=== PATIENT | male | born 1950 | race Caucasian/White ===

== ENCOUNTER 2023-11-12 11:18 | Inpatient (IN) | payer OTHER, SELFPAY ==
[2023-11-10] VITALS (9 sets, daily range): BP systolic 146–175; BP diastolic 69–84; BMI 27.8; BMI 29.3
--- NOTE | 2023-11-10 16:27 | ED.GENMED ---
History of Present Illness
General
Chief Complaint: Fatigue
Source: patient
Time Seen by Provider: 11/10/23 15:56
History of Present Illness
History of Present Illness:
73-year-old male presents to the emergency room for evaluation of weakness and frequent falls. Patient states that he typically gets around with a cane because of a bad right knee. He had his first treatment for liver cancer yesterday. Since then
he has been feeling extremely weak. He states he is fallen at least 4 times. He feels like his legs just give out from under him. He has decreased appetite but is not vomiting. He receives his care through [facility]. When asked if the liver
cancer had spread anywhere he states 'it spread everywhere'. Does not know the name of his oncologist
Past History
Past History
ED Past Medical History: Arrthythmia, HTN, Hypothyroidism and Other (Full neuropathy. Diverticulosis. GERD. Hepatitis C.)
ED Past Surgical History: Orthopedic and Tonsilectomy
Phy Exam
Physical Exam
Physical Exam:
General: Awake, Alert, Oriented X3. Appears fatigued and chronically ill
Vitals: Afebrile, essentially normal vital signs
Head: Atraumatic
Eyes: Pupils equal, EOMI
Throat: Airway intact, no exudates, dry mucosa
Neck: Trachea midline
Lungs: Clear and equal b/l
Heart: Regular rate, no murmurs
Abd: Soft, Nontender, No pulsatile mass
Neuro: Generalized weakness but no focality
Skin: Warm, dry, no rash, very pale complexion
Extremities: pulses equal b/l, no edema
Course
Orders/Labs/Results
Orders:
Orders
11/10/23 Dinner
Regular
At Your Request: Full Participation
11/10/23 16:21
0.9% Sodium Chloride 1000 ml [Nss] 1,000 ml IV BOLUS
11/10/23 16:24
CT Head W/o Iv Contrast Urgent
Comment:
Reason For Exam: frequent falls
11/10/23 16:29
Cardiac Monitoring- Treatment ONCE
11/10/23 16:36
Complete Blood Count/With Diff Urgent
Comprehensive Metabolic Panel Urgent
Magnesium Urgent
Prothrombin Time Urgent
11/10/23 17:23
HYDROmorphone [Dilaudid] 0.5 mg .ROUTE .STK-MED ONE
11/10/23 17:26
HYDROmorphone [Dilaudid] 0.5 mg IV NOW STA
11/10/23 19:12
Potassium Chloride [KCl] 40 meq PO NOW STA
11/10/23 19:43
Admit/Transfer Patient As Directed
Co-Sign Provider:
Level of Care: Observation services
Assign to:: Medical/Surgical
Physician / Group: edilberto
Diagnosis: weakness, spinal mets
11/10/23 19:44
Code Status As Directed
Resuscitation Status: Full Code
11/10/23 21:25
Acetaminophen [Tylenol] 650 mg PO Q4HPRN PRN
Tramadol HCl [Ultram] 50 mg PO TIDPRN PRN
11/10/23 21:25
VTE Contraindication Routine
VTE Mechanical Device Contraindication: Medical Contraindication
Pharmocologic Contraindication: Medical Contraindication
MR Lumbar W/o & With Contrast Routine
Comment:
Reason For Exam: spinal mets, weakness
Recent pill cam endoscopy?: No
MR Thoracic Spine W/o & With Routine
Comment:
Reason For Exam: spinal metsm weakness
Recent pill cam endoscopy?: No
Activity As Directed
Activity Level: As Tolerated
Vital Signs As Directed
Frequency: Per unit guidelines
Ot Eval And Treat Routine
Pt Eval And Treat Routine
Activity Level: As Tolerated
11/10/23 22:00
Atorvastatin [Lipitor] 40 mg PO HS
11/11/23 06:00
Complete Blood Count/With Diff IN AM
Comprehensive Metabolic Panel IN AM
Levothyroxine [Synthroid] 150 mcg PO DAILY @ 0600
11/11/23 08:00
Lisinopril [Zestril] 40 mg PO DAILY
Midodrine [ProAmatine] 5 mg PO TID @ 0800,1200,1700
Pantoprazole [Protonix] 40 mg PO DAILY
11/11/23 18:00
Rivaroxaban [Xarelto] 20 mg PO QPM
Abnormal Lab Results
11/10/23
16:36
RBC 3.63 L 10^6/uL
(4.70-6.10)
Hgb 10.8 L g/dL
(13.0-18.0)
Hct 32.4 L %
(39.0-52.0)
RDW 16.0 H %
(11.5-14.5)
MPV 12.0 H fL
(7.4-10.4)
Absolute Neuts (auto) 6.9 H 10^3/uL
(1.4-6.5)
Absolute Lymphs (auto) 0.7 L 10^3/uL
(1.2-3.4)
Neutrophils % 83.6 H %
(42.2-75.2)
Lymphocytes % 8.9 L %
(20.5-51.1)
PT 16.2 H Sec
(11.4-14.6)
Potassium 3.1 L mmol/L
(3.5-5.1)
BUN 27 H mg/dl
(9-20)
Calcium 11.2 H mg/dl
(8.4-10.2)
AST 162 H U/L
(17-59)
Alkaline Phosphatase 218 H U/L
(38-126)
Total Protein 5.7 L g/dl
(6.3-8.2)
11/10/23 16:36
11/10/23 16:36
Vital Signs
Initial and Last Documented VS:
Initial Vital Signs
BP
160/84
11/10/23 15:28
Last Documented Vital Signs
Temp Pulse Resp BP Pulse Ox
98.5 F 81 16 169/75 99
11/10/23 21:30 11/10/23 21:30 11/10/23 21:30 11/10/23 21:30 11/10/23 21:30
MDM/Problems Addressed
Differential Diagnosis Includes:
renal failure, hyponatremia, dehydration, adverse effect of chemo, progression of dz with cord compression.
MDM/Problems Addressed:
Patient presents with multiple falls with generalized weakness. He does not appear to have focal leg weakness but rather generalized weakness. His labs show a hemoglobin of 10.8. Chemistries show mild hypokalemia and mild prerenal azotemia. Head
CT does not show any acute abnormalities. Patient did not feel much better after IV hydration. I obtain records of his imaging studies from [facility]. He does have significant metastatic disease to the pelvis as well as the thoracic spine.
Patient does not seem to have a neurogenic bladder and again the weakness does not seem focal so I doubt cord compression but something to be watched as an inpatient. Patient unable to care for himself at home and unable to ambulate without
significant assistance. Will hospitalize the patient for further IV hydration and further evaluation.
*Radiology
Radiology exam reviewed: radiology read reviewed
*Pulse Oximetry
Patient hypoxic: no
*Critical Care Note
Total Time (30-74mins, 75-104mins- exclusive of procedures): Not Applicable
Patient Management
Social determinants of health affecting care: Living situation, Poor outpatient follow-up and Poor social support
ED Attending Note
-
Portions of this chart may have been created with voice recognition software.� Occasional wrong word or��sound alike� substitutions may have occurred due to the inherent limitations of voice recognition software.
Discharge Plan
Departure
Patient Disposition: Admit
Date of Disposition: 11/10/23
Time of Disposition: 19:19
Admit to: Med/Surg
Presentation/result/management discussed w/ accepting MD/DO: Hospitalist
Condition: Fair
Discharge Problem:
Hepatocellular carcinoma, Acute hypokalemia, Acute dehydration
Interventions
Interventions:
*Risk Screen - Suicide Last Done: 11/10/23 21:43
*General Assessment Last Done: 11/10/23 15:40
*Neglect/Abuse Screening Last Done: 11/10/23 15:40
*ED COVID-19 Vaccine History Last Done: 11/10/23 15:40
*Nursing Disposition Last Done: 11/10/23 20:50
Discharge Date and Time
Discharge Date/Time: 11/10/23 20:50
[2023-11-10] MEDS: NSS 1000 IV (16:40)
[2023-11-10 16:55] LABS: % Basophils 0.1 % (0-2); % Eosinophils 0.2 % (0-6); % Immature Granulocytes 0.5 % (0-0.5); % Lymphocytes 8.9 % (20.5-51.1); % Monocytes 6.7 % (1.7-9.3); % Neutrophils 83.6 % (42.2-75.2); Absolute Lymphocytes 0.7 10^3/uL (1.2-3.4); Absolute Monocytes 0.6 10^3/uL (0.1-0.6); Absolute Neutrophils 6.9 10^3/uL (1.4-6.5); Hematocrit 32.4 % (39.0-52.0); Hemoglobin 10.8 g/dL (13.0-18.0); Mean Corp Hgb Conc. 33.3 g/dL (33.0-37.0); Mean Corpuscular Hgb 29.8 pg (27.0-31.0); Mean Corpuscular Volume 89.3 fL (80.0-94.0); Nucleated Red Blood Cells % 0 % (-); Platelet Count 229 10^3/uL (130-400); Red Blood Cell Count 3.63 10^6/uL (4.70-6.10); White Blood Cell Count 8.3 10^3/uL (4.8-10.8)
[2023-11-10 16:56] LABS: INR 1.29; PT 16.2 Sec (11.4-14.6)
[2023-11-10 17:05] LABS: ALT (SGPT) 31 U/L (0-50); AST (SGOT) 162 U/L (17-59); Albumin 3.5 g/dl (3.5-5.0); Alkaline Phosphatase 218 U/L (38-126); Blood Urea Nitrogen 27 mg/dl (9-20); Calcium 11.2 mg/dl (8.4-10.2); Carbon Dioxide 27 mmol/L (22-30); Chloride 105 mmol/L (98-107); Estimated Creatinine Clearance 100 ml/min; Glucose 90 mg/dl (70-99); Magnesium 1.8 mg/dl (1.6-2.3); Potassium 3.1 mmol/L (3.5-5.1); Sodium 140 mmol/L (135-145); Total Bilirubin 1.1 mg/dl (0.2-1.3); Total Protein 5.7 g/dl (6.3-8.2); eGFR > 60.00
[2023-11-10] MEDS: DILAUDID 0.5 MG IV (17:26)
--- NOTE | 2023-11-10 17:45 | PHANOTE ---
Med Rec Note:
Attempted to interview pt for his home meds. Pt is a poor historian and seemed confused on medications. Home med list compiled from Dr Hedrick and ECW note on 11/03/23 ([facility]). Some medications left unconfirmed with one source.
--- NOTE | 2023-11-10 19:48 | HPS.HSE ---
Family Physician
-
Family Physician: NOT KNOW UNKNOWN - PT DOES
Chief Complaint
-
weakness
History of Present Illness
73-year-old male past medical history of hepatocellular carcinoma, hepatitis C treated with Harvoni, cirrhosis, osteoarthritis, hypertension, hyperlipidemia, paroxysmal atrial fibrillation on Eliquis, chronic right bundle branch block, questionable
sleep apnea, GERD, diverticulosis, hypothyroidism, peripheral neuropathy, gout, depression, psoriasis, scoliosis, degenerative disc disease, obesity, presenting with weakness frequent falls. He typically ambulates with a cane because of right knee
pain.
He completed his first course of chemotherapy for hepatocellular carcinoma yesterday. Since then he has been feeling extremely weak and tired. He fell at least 4 times. He feels like his legs just give out from under him. He has decreased
appetite but no vomiting. He feels that the weakness has been ongoing for at least 4 days. He has been having right-sided mid back pain for the past several days radiating down the right leg. He denies any incontinence or numbness or tingling.
He denies any fevers or chills, cough, urinary symptoms, nausea vomiting or diarrhea.
He follows [facility] at [place]. He states that he is scheduled for radiation for the bone metastases next week.
He denies smoking or alcohol use.
Medical History
Past Medical History
Past Medical History: Reports Other (hepatocellular carcinoma, hepatitis C treated with Harvoni, cirrhosis, osteoarthritis, hypertension, hyperlipidemia, paroxysmal atrial fibrillation on Eliquis, chronic right bundle branch block, questionable
sleep apnea, GERD, diverticulosis, hypothyroidism, peripheral neuropathy, gout, depression, )
Past Surgical History: Reports Other (Orthopedic and Tonsilectomy)
Social History
Tobacco: Non-smoker
Alcohol: None
Drug: None
Family History
Family History: Not pertinent
Allergies / Home Medications
Allergies reflects when Allergies were last updated in [employer].
Home Medications with original date entered in [employer]
Allergy/Medication List:
Allergies
Allergy/AdvReac Type Severity Reaction Status Date / Time
No Known Allergies Allergy Verified 10/29/21 14:35
Home Medications
citalopram 10 mg tablet 10 mg PO DAILY Depression 03/27/20
fluticasone propionate 50 mcg/actuation nasal spray,suspension 1 spray intranasal BID Thyroid 03/27/20
allopurinol 300 mg tablet 600 mg PO DAILY 11/10/23
atorvastatin 40 mg tablet 40 mg PO HS 11/10/23
azelastine 137 mcg (0.1 %) nasal spray 1 spray intranasal BID 11/10/23
clopidogrel 75 mg tablet 75 mg PO DAILY 11/10/23
digoxin 125 mcg (0.125 mg) tablet 125 mcg PO DAILY 11/10/23
furosemide 20 mg tablet 40 mg PO DAILY 11/10/23
levothyroxine 150 mcg tablet 150 mcg PO DAILY 11/10/23
lisinopril 20 mg tablet 40 mg PO DAILY 11/10/23
metoprolol succinate 25 mg tablet,extended release 24 hr 25 mg PO DAILY 11/10/23
midodrine 5 mg tablet 5 mg PO TID 11/10/23
pantoprazole 40 mg tablet,delayed release 40 mg PO DAILY 11/10/23
rivaroxaban 20 mg tablet (Xarelto) 20 mg PO QPM 11/10/23
tramadol 50 mg tablet 50 mg PO TIDPRN PRN moderate pain 11/10/23
Review of Systems
-
History Source: Patient
A 12 point ROS was completed and negative except as noted: Yes
Constitutional: Reports No Symptoms
EENT: Reports No Symptoms
Respiratory: Reports No Symptoms
Cardiac: Reports No Symptoms
Abdomen/GI: Reports No Symptoms
: Reports No Symptoms
Musculoskeletal: Reports No Symptoms
Skin: Reports No Symptoms
Neurological: Reports No Symptoms
Endocrine: Reports No Symptoms
Hematologic/Lymphatic: Reports No Symptoms
Psych: Reports No Symptoms
Physical Exam
Vital Signs
Vital Signs
Temp Pulse Resp BP Pulse Ox
98.3 F 79 20 160/84 98
11/10/23 15:36 11/10/23 15:36 11/10/23 15:36 11/10/23 15:36 11/10/23 16:16
Physical Exam
General: Well Developed, Well Nourished and No Apparent Distress
HEENT: NormoCephalic, Moist mucous membranes and Atraumatic
Respiratory: Clear
Cardiac: S1/S2 and Regular Rhythm; No Murmur or Rub
GI: Soft, Non Tender, Non Distended and Normal Bowel Sounds; No Organomegaly
Rectal: Deferred by Provider
Musculoskeletal: No Clubbing, No Cyanosis and No Edema
Skin: No Rash
Neuro: Nonfocal/grossly intact
Laboratory Results
-
11/10/23 16:36
11/10/23 16:36
Laboratory Results
PT 16.2 Sec (11.4-14.6) H 11/10/23 16:36
INR 1.29 11/10/23 16:36
Total Bilirubin 1.1 mg/dl (0.2-1.3) 11/10/23 16:36
AST 162 U/L (17-59) H 11/10/23 16:36
ALT 31 U/L (0-50) 11/10/23 16:36
Alkaline Phosphatase 218 U/L (38-126) H 11/10/23 16:36
Data Reviewed
-
Lab Data: Labs Reviewed by me
Old Records: Reviewed
Impression/Plan
-
IMPRESSION:
PLAN:
# Generalized weakness after chemotherapy for hepatocellular carcinoma yesterday
-IV fluids given
-Patient still unable to ambulate after IV fluids
-PT/OT for placement
-Hold Lasix
# Bilateral lower extremity weakness possibly secondary to spinal metastases
-No focality of weakness on examination or red flag symptoms
-CT scan report in the chart from 10/10 showed metastatic disease with multiple lytic lesions in the posterior right iliac bone extending into spinal musculature and right sacral ala, multiple thoracic vertebral bodies, right third rib, left sacral
ala, T2 vertebral body likely extending into spinal canal
-MRI of spine from August does not show any evidence of bony metastases
-Check MRI thoracic and lumbar spine
-Patient apparently already scheduled for radiation with [facility] oncology
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
-Continue tramadol
Cirrhosis
Hepatitis C status treated with Harvoni
Osteoarthritis
Essential hypertension
-Continue lisinopril
-Unclear whether metoprolol
Orthostatic hypotension
-Continue midodrine
Hyperlipidemia
-Continue statin
Paroxysmal atrial fibrillation
-Continue Xarelto
-Unclear whether digoxin
Chronic right bundle branch block
Questionable sleep apnea
GERD
-Continue Protonix
Diverticulosis
Hypothyroidism
-Continue levothyroxine
Peripheral neuropathy
Gout
-Unclear whether on allopurinol
Anxiety/depression
-Unclear whether on citalopram
Psoriasis
Scoliosis
Degenerative disc disease
Obesity
Full code
DVT prophylaxis�Eliquis
Regular diet
[2023-11-10] MEDS: KCL 40 MEQ PO (20:22)
[2023-11-10] MEDS: LIPITOR 40 MG PO (21:59)
[2023-11-10] MEDS: ULTRAM 50 MG PO (21:59)
[2023-11-11] MEDS: SYNTHROID 150 MCG PO (05:25)
[2023-11-11 05:30] VITALS: BMI 29.9
[2023-11-11 06:20] LABS: % Basophils 0.2 % (0-2); % Immature Granulocytes 0.7 % (0-0.5); % Lymphocytes 9.2 % (20.5-51.1); % Monocytes 8.4 % (1.7-9.3); % Neutrophils 80.5 % (42.2-75.2); Absolute Eosinophils 0.1 10^3/uL (0-0.7); Absolute Lymphocytes 0.6 10^3/uL (1.2-3.4); Absolute Monocytes 0.5 10^3/uL (0.1-0.6); Absolute Neutrophils 4.9 10^3/uL (1.4-6.5); Hematocrit 30.2 % (39.0-52.0); Mean Corp Hgb Conc. 33.1 g/dL (33.0-37.0); Mean Corpuscular Hgb 30.4 pg (27.0-31.0); Mean Corpuscular Volume 91.8 fL (80.0-94.0); Mean Platelet Volume 11.7 fL (7.4-10.4); Nucleated Red Blood Cells % 0 % (-); Platelet Count 178 10^3/uL (130-400); Red Blood Cell Count 3.29 10^6/uL (4.70-6.10); White Blood Cell Count 6.1 10^3/uL (4.8-10.8)
[2023-11-11 06:29] LABS: ALT (SGPT) 26 U/L (0-50); AST (SGOT) 128 U/L (17-59); Albumin 2.9 g/dl (3.5-5.0); Alkaline Phosphatase 172 U/L (38-126); Blood Urea Nitrogen 24 mg/dl (9-20); Calcium 10.8 mg/dl (8.4-10.2); Carbon Dioxide 28 mmol/L (22-30); Chloride 108 mmol/L (98-107); Estimated Creatinine Clearance 123 ml/min; Glucose 94 mg/dl (70-99); Potassium 3.4 mmol/L (3.5-5.1); Sodium 139 mmol/L (135-145); eGFR > 60.00
[2023-11-11 06:39] LABS: Total Protein 5.1 g/dl (6.3-8.2)
[2023-11-11] MEDS: PROTONIX 40 MG PO (07:48)
[2023-11-11] MEDS: ZESTRIL 40 MG PO (07:49)
[2023-11-11 07:53] VITALS: BP 162/73
[2023-11-11] MEDS: ProAmatine PO ×3 (07:56→17:20)
--- NOTE | 2023-11-11 10:02 | W.PN.HOSP.TC ---
Today's Communication/Plan
-
see AP
Assessment / Plan
Assessment / Plan
HPI: 73-year-old male past medical history of hepatocellular carcinoma, hepatitis C treated with Harvoni, cirrhosis, osteoarthritis, hypertension, hyperlipidemia, paroxysmal atrial fibrillation on Eliquis, chronic right bundle branch block,
questionable sleep apnea, GERD, diverticulosis, hypothyroidism, peripheral neuropathy, gout, depression, psoriasis, scoliosis, degenerative disc disease, obesity; presented with weakness and frequent falls. He typically ambulates with a cane
because of right knee pain.
He completed his first course of chemotherapy for hepatocellular carcinoma the day [employer]. Since then, he has been feeling extremely weak and tired. He fell at least 4 times. He feels like his legs just give out from under him. He has decreased
appetite but no vomiting. He feels that the weakness has been ongoing for at least 4 days. He has been having right-sided mid back pain for the past several days radiating down the right leg. He denies any incontinence or numbness or tingling.
He denies any fevers or chills, cough, urinary symptoms, nausea vomiting or diarrhea.
He follows [facility] at [place]. He states that he is scheduled for radiation for the bone metastases the following week.
A/P:
# Bilateral lower extremity weakness, suspect due to progression of metastatic hepatocellular carcinoma, chemo S/E, and considering spinal metastases as ddx
s/p IV fluid
CT head NAD
Apparently CT from 10/10 showed metastatic disease with multiple lytic lesions in the posterior right iliac bone extending into spinal musculature and right sacral ala, multiple thoracic vertebral bodies, right third rib, left sacral ala, T2
vertebral body likely extending into spinal canal
Apparently MRI of spine from August did not show any evidence of bony metastases
Check MRI thoracic and lumbar spine
Patient apparently already scheduled for radiation with [facility] oncology
Onc CS
PT/OT for placement
Hold Lasix
# Hepatocellular carcinoma with metastases to bone/spine
# Cirrhosis
# Hepatitis C status treated with Harvoni
Continue tramadol for pain control
# Osteoarthritis
# Essential hypertension
Continue lisinopril
Unclear whether metoprolol
# Orthostatic hypotension
Continue midodrine with holding parameter
# Hyperlipidemia
Continue statin
# Paroxysmal atrial fibrillation
Continue Xarelto
Unclear whether digoxin
# Chronic right bundle branch block
# Questionable sleep apnea
# GERD
Continue Protonix
# Diverticulosis
# Hypothyroidism
Continue levothyroxine
# Peripheral neuropathy
# Gout
Unclear whether on allopurinol
# Anxiety/depression
Unclear whether on citalopram
# Psoriasis
# Scoliosis
# Degenerative disc disease
# Obesity
Full code
DVT prophylaxis�Eliquis
Regular diet
DW on the phone. She has expressed that she is afraid that pt would fall again at home
Anticipated Discharge: > 48 hours
Subjective/Interval History
-
Date of Service: November 11, 2023
Objective Data
-
Labs:
Laboratory Results
11/11/23
05:45
WBC 6.1
Hgb 10.0 L
Hct 30.2 L
Plt Count 178 D
Sodium 139
Potassium 3.4 L
Chloride 108 H
Carbon Dioxide 28
BUN 24 H
Creatinine 0.6 L
Glucose 94
Calcium 10.8 H
Total Bilirubin 1.0
AST 128 H
ALT 26
Alkaline Phosphatase 172 H
Vital Signs:
Vital Signs
Temp Pulse Resp BP Pulse Ox
36.7 C 73 16 162/73 96
11/11/23 07:53 11/11/23 07:53 11/11/23 07:53 11/11/23 07:53 11/11/23 07:53
I&O
0711/11/23 11/12/23
06:59 06:59 06:59
Intake Total 480 / 480
Output Total 125 / 125
Balance 355 / 355
Review of Systems
-
Constitutional: Reports Weakness
Physical Exam
-
General: Well Developed, Well Nourished, No Apparent Distress, Comfortable and Conversant; Negative Respiratory Distress
HEENT: Normocephalic, Atraumatic, Nose Appears Normal and Ears Appear Normal; Negative Oxygen
Respiratory: Clear to Auscultation and Non Labored Respirations; Negative Accessory Resp Muscle Use
Cardiac: Regular Rhythm and S1/S2
GI: Soft, Nontender, Nondistended and Normal Bowel Sounds
Skin: Warm and Dry
Neuro: Awake, Alert and Oriented
Psych: Calm and Intact Judgement/Insight
Data Reviewed
-
CT Scan: Report Reviewed by me (CT head)
Labs: Labs Reviewed by me
[2023-11-11 10:15] VITALS: BP 146/77; PULSE 75
--- NOTE | 2023-11-11 12:04 | CON.ONC ---
Impression
Impression
Posttreatment fatigue
Advanced HCC
Dehydration
Hypertension
Hyperlipidemia
PAF
Plan
Plan
Patient is a very difficult historian he is able to offer no information that is insightful to his care
Discussed with Dr. Urrutia the plan for pelvic radiation therapy
Patient had no cord compression in the previous workup
He received combination Tremelimumab/durvalumab with exacerbation of confusion and weakness
MRI planned
Will need physical therapy
Check cortisol and TSH level
Spoke with his Maren was a unable to offer any insight into his treatment
Will update the note as additional information is available
Continue to monitor CBC
Anticipate he will need placement for physical therapy
Patient History
History of Present Illness
73-year-old male past medical history of hepatocellular carcinoma, hepatitis C treated with Harvoni, cirrhosis, osteoarthritis, hypertension, hyperlipidemia, paroxysmal atrial fibrillation on Eliquis, chronic right bundle branch block, questionable
sleep apnea, GERD, diverticulosis, hypothyroidism, peripheral neuropathy, gout, depression, psoriasis, scoliosis, degenerative disc disease, obesity, presenting with weakness frequent falls. He typically ambulates with a cane because of right knee
pain. He completed his first tx, suspect combination itremelimumab/durvalumab for hepatocellular carcinoma with Dr. Mendoza/Renan at [facility]. He is suffering severe gait dysfunction and performance status decline. He has decreased appetite but
no vomiting. He feels that the weakness has been ongoing for at least 4 days. He has been having right-sided mid back pain for the past several days radiating down the right leg. He denies any incontinence or numbness or tingling. He denies any
fevers or chills, cough, urinary symptoms, nausea vomiting or diarrhea. He states that he is scheduled for radiation for the bone metastases.
Past-Medical/Surgical History
Past Medical History
hepatocellular carcinoma, hepatitis C treated with Harvoni, cirrhosis, osteoarthritis, hypertension, hyperlipidemia, paroxysmal atrial fibrillation on Eliquis, chronic right bundle branch block, questionable sleep apnea, GERD, diverticulosis,
hypothyroidism, peripheral neuropathy, gout, depression
Past Surgical Histor Orthopedic and Tonsilectomy
Social History
Tobacco: Non-smoker
Alcohol: None
Drug: None
Family History
Family History: Not pertinent
Patient Medication
�Medication �Instructions �Recorded �Confirmed �Last Taken �Type
citalopram 10 mg tablet 10 mg PO DAILY Depression 03/27/20 11/11/23 06/06/20 09:00 History
allopurinol 300 mg tablet 600 mg PO DAILY 11/10/23 11/11/23 Unknown History
atorvastatin 40 mg tablet 40 mg PO HS High Cholesterol 11/10/23 11/10/23 Unknown History
azelastine 137 mcg (0.1 %) nasal 1 spray intranasal BID Allergies 11/10/23 11/10/23 Unknown History
spray
clopidogrel 75 mg tablet 75 mg PO DAILY Blood Clot 11/10/23 11/10/23 Unknown History
Prevention/Tx
furosemide 20 mg tablet 40 mg PO DAILY Fluid 11/10/23 11/10/23 Unknown History
Retention/Swelling
levothyroxine 150 mcg tablet 150 mcg PO DAILY Thyroid 11/10/23 11/10/23 Unknown History
lisinopril 20 mg tablet 20 mg PO DAILY Blood Pressure 11/10/23 11/11/23 Unknown History
midodrine 5 mg tablet 5 mg PO TID Blood Pressure 11/10/23 11/10/23 Unknown History
pantoprazole 40 mg tablet,delayed 40 mg PO DAILY Gastrointestinal 11/10/23 11/10/23 Unknown History
release Issue
rivaroxaban 20 mg tablet (Xarelto) 20 mg PO QPM Blood Clot 11/10/23 11/10/23 Unknown History
Prevention/Tx
tramadol 50 mg tablet 50 mg PO TIDPRN PRN moderate pain 11/10/23 11/10/23 Unknown History
Active Medications
Generic Name Dose Route Start Last Admin
Trade Name Freq PRN Reason Stop Dose Admin
Acetaminophen 650 mg 11/10/23 21:25
Acetaminophen 325 Mg Tablet PO 12/08/23 21:24
Q4HPRN PRN
mild pain/SWAN/temp> 100.4F
Allopurinol 600 mg 11/12/23 08:00
Allopurinol 300 Mg Tablet PO 12/10/23 07:59
DAILY SUSIE
Atorvastatin Calcium 40 mg 11/10/23 22:00 11/10/23 21:59
Atorvastatin (Lipitor) 40 Mg Tablet PO 12/08/23 21:59 40 mg
HS SUSIE Administration
Citalopram Hydrobromide 10 mg 11/12/23 08:00
Citalopram 10 Mg Tablet PO 12/10/23 07:59
DAILY SUSIE
Clopidogrel Bisulfate 75 mg 11/12/23 08:00
Clopidogrel 75 Mg Tablet PO 12/10/23 07:59
DAILY SUSIE
Furosemide 40 mg 11/12/23 08:00
Furosemide 40 Mg Tablet PO 12/10/23 07:59
DAILY SUSIE
Levothyroxine Sodium 150 mcg 11/11/23 06:00 11/11/23 05:25
Levothyroxine 150 Mcg Tablet PO 12/09/23 05:59 150 mcg
DAILY @ 0600 SUSIE Administration
Lisinopril 20 mg 11/12/23 08:00
Lisinopril 20 Mg Tablet PO 12/10/23 07:59
DAILY SUSIE
Midodrine 5 mg 11/11/23 08:00 11/11/23 07:56
Midodrine 5 Mg Tablet PO 12/09/23 07:59 Not Given
TID @ 0800,1200,1700 SUSIE
Pantoprazole Sodium 40 mg 11/11/23 08:00 11/11/23 07:48
Pantoprazole 40 Mg Delayed Release Tablet PO 12/09/23 07:59 40 mg
DAILY SUSIE Administration
Rivaroxaban 20 mg 11/11/23 18:00
Rivaroxaban 20 Mg Tablet PO 12/09/23 17:59
QPM SUSIE
Sodium Chloride 0 flush 11/10/23 22:00
Sodium Chloride 0.9% (Flush) Syringe IV 12/08/23 21:59
PER PROTOCOL SUSIE
Tramadol HCl 50 mg 11/10/23 21:25 11/10/23 21:59
Tramadol Hcl 50 Mg Tablet PO 12/08/23 21:24 50 mg
TIDPRN PRN Administration
moderate pain
Review of Systems
-
Negative for 12 point review of systems other than those reviewed HPI
Physical Exam
-
Physical Exam
General: Well Developed, Well Nourished and No Apparent Distress
HEENT: Moist mucous membranes and Atraumatic
Respiratory: Clear
Cardiac: S1/S2 and Regular Rhythm
GI: Soft, mild abdominal tenderness with palpable liver edge
Musculoskeletal: No Clubbing, No Cyanosis and No Edema
Skin: No Rash
Neuro: Nonfocal/grossly intact
Labs
Lab Results
WBC 6.1 10^3/uL (4.8-10.8) 11/11/23 05:45
RBC 3.29 10^6/uL (4.70-6.10) L 11/11/23 05:45
Hgb 10.0 g/dL (13.0-18.0) L 11/11/23 05:45
Hct 30.2 % (39.0-52.0) L 11/11/23 05:45
MCV 91.8 fL (80.0-94.0) 11/11/23 05:45
MCH 30.4 pg (27.0-31.0) 11/11/23 05:45
MCHC 33.1 g/dL (33.0-37.0) 11/11/23 05:45
RDW 16.0 % (11.5-14.5) H 11/11/23 05:45
Plt Count 178 10^3/uL (130-400) D 11/11/23 05:45
MPV 11.7 fL (7.4-10.4) H 11/11/23 05:45
Abs Immat Gran (auto) 0.0 10^3/uL (0-0.05) 11/11/23 05:45
Absolute Neuts (auto) 4.9 10^3/uL (1.4-6.5) 11/11/23 05:45
Absolute Lymphs (auto) 0.6 10^3/uL (1.2-3.4) L 11/11/23 05:45
Absolute Monos (auto) 0.5 10^3/uL (0.1-0.6) 11/11/23 05:45
Absolute Eos (auto) 0.1 10^3/uL (0-0.7) 11/11/23 05:45
Absolute Basos (auto) 0.0 10^3/uL (0-0.2) 11/11/23 05:45
Immature Gran % 0.7 % (0-0.5) H 11/11/23 05:45
Neutrophils % 80.5 % (42.2-75.2) H 11/11/23 05:45
Lymphocytes % 9.2 % (20.5-51.1) L 11/11/23 05:45
Monocytes % 8.4 % (1.7-9.3) 11/11/23 05:45
Eosinophils % 1.0 % (0-6) 11/11/23 05:45
Basophils % 0.2 % (0-2) 11/11/23 05:45
Creatinine 0.6 mg/dL (0.7-1.3) L 11/11/23 05:45
Vital Signs
Vital Signs
Temp Pulse Resp BP Pulse Ox
98.1 F 73 16 162/73 96
11/11/23 07:53 11/11/23 07:53 11/11/23 07:53 11/11/23 07:53 11/11/23 07:53
[2023-11-11] MEDS: KCL 40 MEQ PO (12:07)
[2023-11-11] MEDS: ULTRAM 50 MG PO (12:15)
--- NOTE | 2023-11-11 14:51 | CM ---
Met with pt at bedside - Received chemo yesterday -reports 'very tired' and 'slow today'
Reports lives in a 2 story home with his and son - 5 steps to enter; 17 steps to bedroom
Reports he takes care of his - she is blind
Reports was able to manage steps until recently. Independent with adl's. Ambulates with rolling walker
DME - Cane, rolling walker
SNF - no hx
HH - no Hx
Discussed YEE
PCP - Dr Mayito Correa at [facility]
Pharm - [facility]
PT/OT recommending SNF
Given option list - pt requested CM call his . Spoke with pts - updated. Reports husbands memory has been affected by chemo. Discussed options. [facility] and [facility]
Referrals sent in [facility]
Will need auth
Plan - anticipate SNF at d/c
[2023-11-11 15:37] VITALS: BP 135/76
[2023-11-11] MEDS: XARELTO 20 MG PO (17:21)
[2023-11-11 17:51] LABS: Cortisol, Random 13.7 ug/dl; TSH 1.79 uIU/ml (0.47-4.68)
[2023-11-11] MEDS: LIPITOR 40 MG PO (21:44)
[2023-11-11 23:18] VITALS: BP 156/76
[2023-11-12] MEDS: SYNTHROID 150 MCG PO (05:15)
[2023-11-12 05:21] VITALS: BMI 29.3
[2023-11-12 06:27] LABS: Hematocrit 31.6 % (39.0-52.0); Hemoglobin 10.5 g/dL (13.0-18.0); Mean Corp Hgb Conc. 33.2 g/dL (33.0-37.0); Mean Corpuscular Hgb 30.2 pg (27.0-31.0); Mean Corpuscular Volume 90.8 fL (80.0-94.0); Mean Platelet Volume 10.8 fL (7.4-10.4); Platelet Count 171 10^3/uL (130-400); Red Blood Cell Count 3.48 10^6/uL (4.70-6.10)
[2023-11-12 06:42] LABS: ALT (SGPT) 27 U/L (0-50); AST (SGOT) 172 U/L (17-59); Alkaline Phosphatase 179 U/L (38-126); Blood Urea Nitrogen 21 mg/dl (9-20); Carbon Dioxide 29 mmol/L (22-30); Chloride 106 mmol/L (98-107); Direct Bilirubin 0.3 mg/dl (0.0-0.4); Estimated Creatinine Clearance 110 ml/min; Glucose 85 mg/dl (70-99); Magnesium 1.8 mg/dl (1.6-2.3); Potassium 4.1 mmol/L (3.5-5.1); Sodium 136 mmol/L (135-145); Total Bilirubin 1.2 mg/dl (0.2-1.3); Total Protein 5.2 g/dl (6.3-8.2); eGFR > 60.00
[2023-11-12 07:33] VITALS: BP 149/78
[2023-11-12 08:24] VITALS: BMI 29.3
[2023-11-12] MEDS: PROTONIX 40 MG PO (08:26)
[2023-11-12] MEDS: ZESTRIL 20 MG PO (08:26)
[2023-11-12] MEDS: PLAVIX 75 MG PO (08:27)
[2023-11-12] MEDS: CELEXA 10 MG PO (08:27)
[2023-11-12] MEDS: ProAmatine PO ×3 (08:27→17:11)
[2023-11-12] MEDS: ZYLOPRIM 600 MG PO (08:27)
[2023-11-12] MEDS: LASIX 40 MG PO (08:27)
--- NOTE | 2023-11-12 09:14 | W.PN.ONC2 ---
Addendum entered and electronically signed by Nataly Mitchell MD 11/12/23 12:48:
Reviewed MRI findings w/ radiology and Rad Onc, c/w T3 cord compression
Rad onc consult to plan treatment (known to Dr. Bailee Urrutia at [facility])
Will start steroids, Dex 10mg now, and 4mg q8hr
PPI for GI ppx, especially while on DOAC + Plavix
Original Note:
Today's Communication / Plan
-
f/u L -spine, T-spine
pamidronate ordered
check iron studies, b12, folate, retic
check PTH
Impression
Impression
I was able to obtain and review records from [place] [facility]
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 Urrutia to right liliac crest
Dehydration
Hypertension
Hyperlipidemia
PAF
mild normocytic anemia, stable
hypercalcemia secondary to bone mets
Plan
Plan
Bone mets-f/u MRI
pamidronate
PT/OT
normal cortisol and TSH level -monitor for immune mediated toxicities
mild normocytic anemia evaluation
hypercalcemia secondary to malignancy
Subjective/Objective
Chief Complaint
No new complaints
denies headache, dizziness
Reports weakness and back and right hip pain
denies any dental issues or mouth pain
Subjective
Exams: MR Brain W/o & With Contrast
CPT: 17269
PROCEDURE: MR Brain W/o  With Contrast
CLINICAL INDICATION: confusion- possible brain mets
TECHNIQUE: 1.5 Alexus. Unenhanced and enhanced MRI imaging of the brain was performed. Precontrast sagittal and axial T1, as well as axial fast spin echo T2, FLAIR, and diffusion images were obtained. Postcontrast T1 axial and coronal images were
also obtained.
COMPARISON: CT head 11/10/2023
FINDINGS: Evaluation is limited by patient involuntary motion artifact.
Axial FLAIR sequence demonstrates mild hyperintensity within the periventricular and deep subcortical white matter, likely related to chronic small vessel ischemic changes. No suspicious abnormal parenchymal signal intensity is identified.
The ventricles and sulci are normal in size and configuration. There is no mass effect, midline shift, or extra axial collection.
There is no abnormal parenchymal or meningeal enhancement. There is no abnormal signal intensity on diffusion-weighted images.
The vascular structures at the skull base are unremarkable, as far as visualized. The sinuses and mastoids are clear.
IMPRESSION:
No acute intracranial abnormality noted. No evidence for intracranial metastases.
Vital Signs:
Vital Signs
Temp Pulse Resp BP Pulse Ox
97.7 F 76 16 149/78 95
11/12/23 07:33 11/12/23 08:26 11/12/23 07:33 11/12/23 08:27 11/12/23 07:33
Lab Results:
Laboratory Data
WBC 7.0 10^3/uL (4.8-10.8) 11/12/23 06:05
Hgb 10.5 g/dL (13.0-18.0) L 11/12/23 06:05
Plt Count 171 10^3/uL (130-400) 11/12/23 06:05
PT 16.2 Sec (11.4-14.6) H 11/10/23 16:36
INR 1.29 11/10/23 16:36
eGFR > 60.00 11/12/23 06:05
Physical Exam
HEENT: Moist Mucous Membranes; No Jaundice
Cardiology: S1 and S2
Pulmonary: Clear
GI: Soft
Extremities: No Edema
Neuro: Non Focal
Review of Systems
Review of Systems
ROS notable for subjective otherwise negative
--- NOTE | 2023-11-12 11:20 | W.PN.HOSP.TC ---
Addendum entered and electronically signed by Justin Garrett MD 11/12/23 15:48:
Emergency Transfer for Spinal Cord Compression and need for Spinal Radiation. Transfer accepted to [facility]
Addendum entered and electronically signed by Justin Garrett MD 11/12/23 14:43:
#Hypercalcemia�pamidronate
#Spinal mets - IV steroids; Transfer to [facility] - for Radiation
[id number]
Original Note:
Today's Communication/Plan
-
MRI Head, Spine
PT/OT
Assessment / Plan
Assessment / Plan
HPI: 73-year-old male past medical history of hepatocellular carcinoma, hepatitis C treated with Harvoni, cirrhosis, osteoarthritis, hypertension, hyperlipidemia, paroxysmal atrial fibrillation on Eliquis, chronic right bundle branch block,
questionable sleep apnea, GERD, diverticulosis, hypothyroidism, peripheral neuropathy, gout, depression, psoriasis, scoliosis, degenerative disc disease, obesity; presented with weakness and frequent falls. He typically ambulates with a cane
because of right knee pain.
He completed his first course of chemotherapy for hepatocellular carcinoma the day [facility]. Since then, he has been feeling extremely weak and tired. He fell at least 4 times. He feels like his legs just give out from under him. He has decreased
appetite but no vomiting. He feels that the weakness has been ongoing for at least 4 days. He has been having right-sided mid back pain for the past several days radiating down the right leg. He denies any incontinence or numbness or tingling.
He denies any fevers or chills, cough, urinary symptoms, nausea vomiting or diarrhea.
He follows [facility] at [facility]. He states that he is scheduled for radiation for the bone metastases the following week.
A/P:
# Bilateral lower extremity weakness, suspect due to progression of metastatic hepatocellular carcinoma, chemo S/E, and considering spinal metastases as ddx
s/p IV fluid
CT head NAD
Apparently CT from 10/10 showed metastatic disease with multiple lytic lesions in the posterior right iliac bone extending into spinal musculature and right sacral ala, multiple thoracic vertebral bodies, right third rib, left sacral ala, T2
vertebral body likely extending into spinal canal
Apparently MRI of spine from August did not show any evidence of bony metastases
Check MRI head, thoracic and lumbar spine
Patient apparently already scheduled for radiation with [facility] oncology
Onc CS
PT/OT for placement
TSH and Cortisol WNL
# Hepatocellular carcinoma with metastases to bone/spine
# Cirrhosis
# Hepatitis C status treated with Harvoni
Continue tramadol for pain control
-see plan above
-onc recs
# Osteoarthritis
# Essential hypertension
Continue lisinopril
# Orthostatic hypotension
Continue midodrine with holding parameter
# Hyperlipidemia
Continue statin
# Paroxysmal atrial fibrillation
Continue Xarelto
Unclear whether digoxin - await med rec
# Chronic right bundle branch block
# Questionable sleep apnea
# GERD
Continue Protonix
# Diverticulosis
# Hypothyroidism
Continue levothyroxine
# Peripheral neuropathy
# Gout
Unclear whether on allopurinol
# Anxiety/depression
Unclear whether on citalopram
# Psoriasis
# Scoliosis
# Degenerative disc disease
# Obesity
Full code
DVT prophylaxis�xarelto
Regular diet
Anticipated Discharge: 24 - 48 hours
Subjective/Interval History
-
Date of Service: November 12, 2023
No acute events overnight
Objective Data
-
Labs:
Laboratory Results
11/12/23
06:05
WBC 7.0
Hgb 10.5 L
Hct 31.6 L
Plt Count 171
Sodium 136
Potassium 4.1
Chloride 106
Carbon Dioxide 29
BUN 21 H
Creatinine 0.6 L
Glucose 85
Calcium 11.0 H
Total Bilirubin 1.2
AST 172 H
ALT 27
Alkaline Phosphatase 179 H
Vital Signs:
Vital Signs
Temp Pulse Resp BP Pulse Ox
97.7 F 76 16 149/78 95
11/12/23 07:33 11/12/23 08:26 11/12/23 07:33 11/12/23 08:27 11/12/23 09:58
I&O
11/11/23 11/12/23 11/13/23
06:59 06:59 06:59
Intake Total 480 / 480 1440 / 1440
Output Total 125 / 125 800 / 800
Balance 355 / 355 640 / 640
Review of Systems
-
History Source: Patient
All other systems: Not reviewed unless documented
Physical Exam
-
General: Well Developed, Well Nourished, No Apparent Distress, Comfortable, Conversant and Other (Lethargic); Negative Respiratory Distress
HEENT: Normocephalic, Atraumatic, Nose Appears Normal and Ears Appear Normal; Negative Oxygen
Respiratory: Clear to Auscultation and Non Labored Respirations; Negative Accessory Resp Muscle Use
Cardiac: Regular Rhythm and S1/S2
GI: Soft, Nontender, Nondistended and Normal Bowel Sounds
Skin: Warm and Dry
Neuro: Awake, Alert and Oriented
Psych: Calm and Intact Judgement/Insight
Data Reviewed
-
CT Scan: Image personally visualized and interpreted and Report Reviewed by me
Labs: Labs Reviewed by me
[2023-11-12] MEDS: ULTRAM 50 MG PO ×2 (12:23→21:37)
[2023-11-12] MEDS: AREDIA 280 MG IV (12:24)
--- NOTE | 2023-11-12 12:41 | CM ---
Addendum entered by Catrachita Barbour 11/12/23 16:01:
[place] [facility] [place] and transport forms on chart
Addendum entered by Catrachita Barbour 11/12/23 14:12:
[facility]
Additional referrals sent in Care Port
Original Note:
Case management following for d/c planning
Chart reviewed
Pt for SNF at d/c - referrals previously sent
[facility] unable to accept
LM with Patricia at [facility] asking to review referral
LM with Mark at [facility] asking for referral to be reviewed
Will needs auth
Plan - anticipate SNF when medically stable, when bed and auth obtained
--- NOTE | 2023-11-12 12:46 | PHANOTE ---
med rec note- unable to speak to patient about medication due to memory issue. called home phone but no answer and the phone did not ring, patient does have pharmacy records. called patient cardiology office at [phone] Correa at
[phone].hopeful to get a call back or fax of patient med list
[2023-11-12] MEDS: DECADRON 10 MG IV (13:04)
--- NOTE | 2023-11-12 14:44 | W.DS.TRANS ---
DC Summary - Adjunct Trainer
-
Discharge Instructions:
Instructions:
Stand-Alone Forms:
Changes to Home Medications: No
Discharge Medications:
DC Medications w/original date entered in [employer]
citalopram 10 mg tablet 10 mg PO DAILY Depression 03/27/20
allopurinol 300 mg tablet 600 mg PO DAILY 11/10/23
atorvastatin 40 mg tablet 40 mg PO HS High Cholesterol 11/10/23
azelastine 137 mcg (0.1 %) nasal spray 1 spray intranasal BID Allergies 11/10/23
clopidogrel 75 mg tablet 75 mg PO DAILY Blood Clot Prevention/Tx 11/10/23
furosemide 20 mg tablet 40 mg PO DAILY Fluid Retention/Swelling 11/10/23
levothyroxine 150 mcg tablet 150 mcg PO DAILY Thyroid 11/10/23
lisinopril 20 mg tablet 20 mg PO DAILY Blood Pressure 11/10/23
midodrine 5 mg tablet 5 mg PO TID Blood Pressure 11/10/23
pantoprazole 40 mg tablet,delayed release 40 mg PO DAILY Gastrointestinal Issue 11/10/23
rivaroxaban 20 mg tablet (Xarelto) 20 mg PO QPM Blood Clot Prevention/Tx 11/10/23
tramadol 50 mg tablet 50 mg PO TIDPRN PRN moderate pain 11/10/23
Home Medication Changes
no
Can cont IV steroids, pamidronate as needed
Pending Results: No
[2023-11-12 15:24] VITALS: BP 136/73
--- NOTE | 2023-11-12 16:32 | CM ---
process safety manager assisting assigned caseworker with possible transfer to [place] today, physician has added an addendum to chart. Patient has been accepted at [facility] with Dr. Radha Lebron , caseworker spoke with Lynda
and Michael at transfer center [phone] and no Auth is required. Per physician notes patient is for emergent admission, spinal cord for treatment.
Plan; To follow up with transfer center hopefully patient for transfer today to [facility].
[2023-11-12] MEDS: DECADRON 4 MG PO ×2 (17:11→23:03)
[2023-11-12] MEDS: XARELTO 20 MG PO (17:11)
[2023-11-12] MEDS: LIPITOR 40 MG PO (21:37)
[2023-11-12 23:18] LABS: COVID-19 Antigen Negative (Negative)
[2023-11-12 23:49] VITALS: BP 158/89
[2023-11-13 06:00] VITALS: BMI 29.0
[2023-11-13] MEDS: SYNTHROID 150 MCG PO (06:01)
[2023-11-13 07:42] VITALS: BP 148/83
[2023-11-13] MEDS: PLAVIX 75 MG PO (08:11)
[2023-11-13] MEDS: DECADRON 4 MG PO (08:11)
[2023-11-13] MEDS: ZYLOPRIM 600 MG PO (08:11)
[2023-11-13] MEDS: PROTONIX 40 MG PO (08:11)
[2023-11-13] MEDS: LASIX 40 MG PO (08:11)
[2023-11-13] MEDS: ProAmatine 5 MG PO (08:11)
[2023-11-13] MEDS: ZESTRIL 20 MG PO (08:11)
== END 2023-11-13 08:35 | disposition short-term general hospital (02) | DRG 543 ==
LOC: 3 WEST ACU 11:18
PROVIDERS: Internal Medicine; Nurse Practitioner Family; ADMITTING PHYSICIAN Hospitalist; ATTENDING PHYSICIAN Internal Medicine; CONSULT PHYSICIAN Internal Medicine Hematology & Oncology; EMERGENCY PHYSICIAN Emergency Medicine
DX: C79.51 Secondary malignant neoplasm of bone (principal); C22.0 Liver cell carcinoma; G95.29 Other cord compression; E83.52 Hypercalcemia; M48.04 Spinal stenosis, thoracic region; R53.83 Other fatigue; E86.0 Dehydration; R29.6 Repeated falls; E03.9 Hypothyroidism, unspecified; I10 Essential (primary) hypertension; G62.9 Polyneuropathy, unspecified; K21.9 Gastro-esophageal reflux disease without esophagitis; B19.20 Unspecified viral hepatitis C without hepatic coma; E87.6 Hypokalemia; K74.60 Unspecified cirrhosis of liver; M19.90 Unspecified osteoarthritis, unspecified site; E78.00 Pure hypercholesterolemia, unspecified; I48.0 Paroxysmal atrial fibrillation; I45.10 Unspecified right bundle-branch block; M10.9 Gout, unspecified; M51.34 Other intervertebral disc degeneration, thoracic region; F41.9 Anxiety disorder, unspecified; D64.9 Anemia, unspecified; F32.A Depression, unspecified; L40.9 Psoriasis, unspecified; M41.9 Scoliosis, unspecified; E66.9 Obesity, unspecified; I95.1 Orthostatic hypotension; R26.9 Unspecified abnormalities of gait and mobility; Z87.19 Personal history of other diseases of the digestive system; Z92.21 Personal history of antineoplastic chemotherapy; Z79.01 Long term (current) use of anticoagulants; Z68.29 Body mass index [BMI] 29.0-29.9, adult; Z11.52 Encounter for screening for COVID-19; Z79.890 Hormone replacement therapy
CPT/HCPCS: 70450; 70553; 72157; 72158; 80053; 82248; 82533; 83735; 84443; 85025; 85027; 85610; 87811; 96361; 96374; 97162; 97166; 99284; A9575; J2430